=== PATIENT | male | born 1985 | race Caucasian/White ===

== ENCOUNTER 2017-04-08 09:29 | Emergency (ER) | payer OTHER ==
[2017-04-08 09:41] VITALS: BP 149/97
--- NOTE | 2017-04-08 11:39 | RAD ---
INDICATION: Severe RIGHT lower leg/calf pain and swelling following injury one week ago. COMPARISON: No relevant prior exams available on the [facility] for comparison. TECHNIQUE: Wells scale, color Doppler, and spectral analysis of the deep veins of the RIGHT lower extremity. Vessel compression, phasicity, and augmentation assessed. REPORT: The RIGHT common femoral, great saphenous, profunda femoral, femoral, popliteal, peroneal, and posterior tibial veins are patent. There is a gross complete distal myotendinous junction tear of the medial head of the gastrocnemius with up to 2.5 cm gap due to muscle retraction. Associated infiltrative edema/hematoma within the muscular compartment as well as overlying subcutaneous edema. The distal myotendinous junction of the lateral head of the gastrocnemius is intact. Patency of the LEFT common femoral vein documented. IMPRESSION: 1. No evidence for RIGHT lower extremity deep venous thrombosis. 2. Gross complete distal myotendinous junction tear of the medial head of the gastrocnemius with up to 2.5 cm gap due to muscle retraction and associated infiltrative edema/hematoma within the muscular compartment as well as overlying subcutaneous edema.
--- NOTE | 2017-04-08 14:46 | UC ---
Lower Extremity/Ankle HPI - HPI Summary HPI Summary: pt was playing basket ball 1 week ago and felt a pop when he jumped. he experienced immediate pain followed by swelling then bruising. pain with walking and weight bearing. pain tends to improve with movement but worsens as the day progresses. leg is not improving and pt worried about dvt. no other sx. - History of Current Complaint Chief Complaint: UCLowerExtremity Stated Complaint: CALF PAIN Time Seen by Provider: 04/08/17 09:59 Hx Obtained From: Patient Onset/Duration: Sudden Onset, Lasting Weeks, Still Present Severity Initially: Moderate Severity Currently: Moderate Pain Intensity: 7 Pain Scale Used: 0-10 Numeric Aggravating Factor(s): Standing, Ambulation Alleviating Factor(s): Rest Able to Bear Weight: Yes - Allergies/Home Medications Allergies/Adverse Reactions: Allergies Allergy/AdvReac Type Severity Reaction Status Date / Time No Known Allergies Allergy Verified 04/08/17 09:36 Home Medications: Home Medications NK [No Home Medications Reported] 04/08/17 [History Confirmed 04/08/17] PMH/Surg Hx/FS Hx/Imm Hx Previously Healthy: Yes Other Cardiovascular History: neg htn Other Respiratory History: neg asthma - Surgical History Surgical History: Yes Surgery Procedure, Year, and Place: left knee-' - Family History Known Family History: Negative: Cardiac Disease, Hypertension, Diabetes - Social History Alcohol Use: Occasionally Substance Use Type: None Smoking Status (MU): Never Smoked Tobacco - Immunization History Most Recent Influenza Vaccination: none Review of Systems Constitutional: Negative Skin: Bruising ENT: Negative Respiratory: Negative Cardiovascular: Negative Gastrointestinal: Negative Musculoskeletal: Edema, Myalgia Neurological: Negative All Other Systems Reviewed And Are Negative: Yes Physical Exam Triage Information Reviewed: Yes Appearance: Well-Appearing, No Pain Distress, Well-Nourished Vital Signs: Initial Vital Signs Temp 97.9 F 04/08/17 09:36 Pulse 81 04/08/17 09:36 Resp 18 04/08/17 09:36 BP 149/97 04/08/17 09:36 Pulse Ox 98 04/08/17 09:36 Vital Signs Reviewed: Yes Eyes: Positive: Conjunctiva Clear. Negative: Discharge ENT: Positive: Hearing grossly normal. Negative: Muffled/hoarse voice Neck: Positive: Supple Respiratory: Positive: Lungs clear, Normal breath sounds, No respiratory distress, No accessory muscle use Cardiovascular: Positive: RRR, No Murmur Musculoskeletal: Positive: ROM Limited @ - flexion, Edema @, Other: - calf tenderness. no appreciable defect Neurological: Positive: Alert, Muscle Tone Normal Psychological: Positive: Age Appropriate Behavior Skin Exam: Normal Skin: Positive: Other - dependant bruising around rt ankle Lower Extremity Course/Dx - Differential Dx/Diagnosis Differential Diagnosis/HQI/PQRI: DVT, Phlebitis, Sprain, Strain, Other - tendon rupture Provider Diagnoses: tendon rupture, elevated bp withou dx of htn Discharge - Discharge Plan Condition: Stable Disposition: HOME Patient Education Materials: Tendon Rupture (ED) Forms: *Work Release Referrals: Guillermo Díaz MD [Medical Doctor] - (follow up in 4-7 days) No Primary Care Phys,NOPCP [Primary Care Provider] - Additional Instructions: FOLLOW-UP CARE: You should establish with a private physician for follow-up care. If you are unable to get a timely appointment, or if you are worsening, call us or return for re-evaluation. An additional resource available to assist in finding the appropriate physician for your health care needs is the Physician Referral Center. You may contact them by calling [phone].
== END 2017-04-08 12:23 | disposition home or self-care (01) ==
LOC: UCEAST 09:29
DX: S86.811A Strain of other muscle(s) and tendon(s) at lower leg level, right leg, initial encounter (principal); R03.0 Elevated blood-pressure reading, without diagnosis of hypertension; X50.9XXA Other and unspecified overexertion or strenuous movements or postures, initial encounter; Y92.9 Unspecified place or not applicable; R60.0 Localized edema
CPT/HCPCS: 99212; G0463

== ENCOUNTER 2018-09-25 18:40 | Emergency (ER) | payer OTHER ==
[2018-09-25 19:56] LABS: ABS Basophils 0.1 10^3/ul (0-0.2); ABS Eosinophils 0.1 10^3/ul (0-0.6); ABS Lymphocytes 2.1 10^3/ul (1.0-4.8); ABS Monocytes 0.5 10^3/ul (0-0.8); ABS Neutrophils 3.6 10^3/ul (1.5-7.7); ABS Nucleated RBC 0 10^3/ul; Eosinophil % 1.7 %; Hematocrit 42 % (42-52); Hemoglobin 14.8 g/dl (14.0-18.0); Mean Corpuscular HGB Conc 35 g/dl (31-36); Mean Corpuscular Hemoglobin 30 pg (27-31); Mean Corpuscular Volume 87 fL (80-94); Mean Platelet Volume 8.9 fL (7.4-10.4); Nucleated Red Blood Cells % 0.1; Platelet Count 216 10^3/ul (150-450); Red Blood Count 4.87 10^6/ul (4.00-5.40); Red Cell Distribution Width 13 % (10.5-15); White Blood Count 6.5 10^3/ul (3.5-10.8)
[2018-09-25 20:13] LABS: BUN/Creatinine Ratio 11.6 (8-20); C Reactive Protein 5.01 mg/L (<8.01); Calcium 9.8 mg/dL (8.6-10.3); EGFR African American 92.5 (>60); EGFR Non-African American 76.5 (>60); Globulin 2.5 g/dL (2-4); Potassium 4.2 mmol/L (3.5-5.0); Total Bilirubin 0.5 mg/dL (0.2-1.0); Total Protein 7.5 g/dL (6.4-8.9)
[2018-09-25 22:19] LABS: Urine Appearance Clear; Urine Bilirubin Negative (Negative); Urine Blood Negative (Negative); Urine Color Yellow; Urine Glucose Negative (Negative); Urine Ketones Negative (Negative); Urine Nitrite Negative (Negative); Urine Protein Negative (Negative); Urine Specific Gravity 1.027 (1.010-1.030); Urine Urobilinogen Negative (Negative)
[2018-09-25] MEDS ORDERED: Magnesium CITRATE* 300 ML BTL PO ONE (22:45)
[2018-09-25] MEDS ORDERED: Bisacodyl SUPP* 10 MG SUPP PR ONE (22:46)
[2018-09-25 23:08] VITALS: BP 141/99
--- NOTE | 2018-09-25 23:09 | ED ---
Abdominal Pain/Male - HPI Summary HPI Summary: The patient is a 32 year old male who is presenting to the [facility] with a chief complaint of abd pain. The patient states that the onset of the pain was 3 days ago. He denies nausea and vomiting. The pain is also reported to be constant. He has not had a decreased appetite and was able to eat today. No urinary symptoms were reported and the patient has been able to urinate normally. The pain is rated to be 4/10 in severity. The symptoms are aggravated by nothing and the symptoms are alleviated by nothing. - History of Current Complaint Chief Complaint: EDAbdPain Stated Complaint: RIGHT ABD PAIN Time Seen by Provider: 09/25/18 21:56 Hx Obtained From: Patient Onset/Duration: Gradual Onset, Lasting Days - Since 3 days ago Timing: Constant Severity Initially: Moderate Severity Currently: Moderate Pain Intensity: 4 Pain Scale Used: 0-10 Numeric Aggravating Factor(s): Nothing Alleviating Factor(s): Nothing Associated Signs And Symptoms: Negative: Nausea, Vomiting - Allergies/Home Medications Allergies/Adverse Reactions: Allergies Allergy/AdvReac Type Severity Reaction Status Date / Time No Known Allergies Allergy Verified 09/25/18 19:11 PMH/Surg Hx/FS Hx/Imm Hx Sensory History: Denies: Hx Vision Problem, Hx Deafness Opthamlomology History: Denies: Hx Legally Blind EENT History: Denies: Hx Deafness, Hx Hearing Aid - Surgical History Surgery Procedure, Year, and Place: left knee-'09 - Immunization History Date of Tetanus Vaccine: utd Date of Influenza Vaccine: none Infectious Disease History: No Infectious Disease History: Denies: Traveled Outside the [place] in Last 30 Days - Family History Known Family History: Negative: Cardiac Disease, Hypertension, Diabetes - Social History Occupation: Employed Full-time Alcohol Use: Weekly Substance Use Type: Reports: None Smoking Status (MU): Never Smoked Tobacco Review of Systems Constitutional: Negative Eyes: Negative ENT: Negative Cardiovascular: Negative Respiratory: Negative Positive: Abdominal Pain, Other - Negative decreased appetite. Negative: Vomiting, Nausea Genitourinary: Other - Negative Urinary Symptoms Musculoskeletal: Negative Skin: Negative Neurological: Negative Psychological: Normal All Other Systems Reviewed And Are Negative: Yes Physical Exam - Summary Physical Exam Summary: VITAL SIGNS: Reviewed. GENERAL: Patient is a well-developed and nourished (MALE) who is lying comfortable in the stretcher. Patient is not in any acute respiratory distress. HEAD AND FACE: No signs of trauma. No ecchymosis, hematomas or skull depressions. No sinus tenderness. EYES: PERRLA, EOMI x 2, No injected conjunctiva, no nystagmus. EARS: Hearing grossly intact. Ear canals and tympanic membranes are within normal limits. MOUTH: Oropharynx within normal limits. NECK: Supple, trachea is midline, no adenopathy, no JVD, no carotid bruit, no c- spine tenderness, neck with full ROM. CHEST: Symmetric, no tenderness at palpation LUNGS: Clear to auscultation bilaterally. No wheezing or crackles. CVS: Regular rate and rhythm, S1 and S2 present, no murmurs or gallops appreciated. ABDOMEN: Soft, non-tender. No signs of distention. No rebound no guarding, and no masses palpated. Bowel sounds are normal. EXTREMITIES: FROM in all major joints, no edema, no cyanosis or clubbing. NEURO: Alert and oriented x 3. No acute neurological deficits. Speech is normal and follows commands. SKIN: Dry and warm Triage Information Reviewed: Yes Vital Signs On Initial Exam: Initial Vitals Temp Pulse Resp BP Pulse Ox 98.6 F 90 16 158/108 97 09/25/18 19:09 09/25/18 19:09 09/25/18 19:09 09/25/18 19:09 09/25/18 19:09 Vital Signs Reviewed: Yes Diagnostics - Vital Signs Vital Signs Temp Pulse Resp BP Pulse Ox 09/25/18 21:25 86 149/96 99 09/25/18 21:04 98.3 F 82 16 141/76 99 09/25/18 19:09 98.6 F 90 16 158/108 97 - Laboratory Lab Results: Lab Results 09/25/18 09/25/18 09/25/18 Range/Units 19:51 19:51 19:51 WBC 6.5 (3.5-10.8) 10^3/ul RBC 4.87 (4.00-5.40) 10^6/ul Hgb 14.8 (14.0-18.0) g/dl Hct 42 (42-52) % MCV 87 (80-94) fL MCH 30 (27-31) pg MCHC 35 (31-36) g/dl RDW 13 (10.5-15) % Plt Count 216 (150-450) 10^3/ul MPV 8.9 (7.4-10.4) fL Neut % (Auto) 56.3 % Lymph % (Auto) 33.0 % Weld % (Auto) 8.1 % Eos % (Auto) 1.7 % Baso % (Auto) 0.9 % Absolute Neuts (auto) 3.6 (1.5-7.7) 10^3/ul Absolute Lymphs (auto) 2.1 (1.0-4.8) 10^3/ul Absolute Monos (auto) 0.5 (0-0.8) 10^3/ul Absolute Eos (auto) 0.1 (0-0.6) 10^3/ul Absolute Basos (auto) 0.1 (0-0.2) 10^3/ul Absolute Nucleated RBC 0 10^3/ul Nucleated RBC % 0.1 Sodium 138 (135-145) mmol/L Potassium 4.2 (3.5-5.0) mmol/L Chloride 105 (101-111) mmol/L Carbon Dioxide 29 (22-32) mmol/L Anion Gap 4 (2-11) mmol/L BUN 13 (6-24) mg/dL Creatinine 1.12 (0.67-1.17) mg/dL Est GFR ( Amer) 92.5 (>60) Est GFR (Non-Af Amer) 76.5 (>60) BUN/Creatinine Ratio 11.6 (8-20) Glucose 87 (70-100) mg/dL Lactic Acid 0.6 (0.5-2.0) mmol/L Calcium 9.8 (8.6-10.3) mg/dL Total Bilirubin 0.50 (0.2-1.0) mg/dL AST 31 (13-39) U/L ALT 86 H (7-52) U/L Alkaline Phosphatase 54 (34-104) U/L C-Reactive Protein 5.01 (<8.01) mg/L Total Protein 7.5 (6.4-8.9) g/dL Albumin 5.0 (3.2-5.2) g/dL Globulin 2.5 (2-4) g/dL Albumin/Globulin Ratio 2.0 (1-3) Lipase 72 (11.0-82.0) U/L Urine Color Urine Appearance Urine pH (5-9) Ur Specific [place] (1.010-1.030) Urine Protein (Negative) Urine Ketones (Negative) Urine Blood (Negative) Urine Nitrate (Negative) Urine Bilirubin (Negative) Urine Urobilinogen (Negative) Ur Leukocyte Esterase (Negative) Urine Glucose (Negative) Urine Ascorbic Acid (Negative) 09/25/18 Range/Units 22:10 WBC (3.5-10.8) 10^3/ul RBC (4.00-5.40) 10^6/ul Hgb (14.0-18.0) g/dl Hct (42-52) % MCV (80-94) fL MCH (27-31) pg MCHC (31-36) g/dl RDW (10.5-15) % Plt Count (150-450) 10^3/ul MPV (7.4-10.4) fL Neut % (Auto) % Lymph % (Auto) % Weld % (Auto) % Eos % (Auto) % Baso % (Auto) % Absolute Neuts (auto) (1.5-7.7) 10^3/ul Absolute Lymphs (auto) (1.0-4.8) 10^3/ul Absolute Monos (auto) (0-0.8) 10^3/ul Absolute Eos (auto) (0-0.6) 10^3/ul Absolute Basos (auto) (0-0.2) 10^3/ul Absolute Nucleated RBC 10^3/ul Nucleated RBC % Sodium (135-145) mmol/L Potassium (3.5-5.0) mmol/L Chloride (101-111) mmol/L Carbon Dioxide (22-32) mmol/L Anion Gap (2-11) mmol/L BUN (6-24) mg/dL Creatinine (0.67-1.17) mg/dL Est GFR ( Amer) (>60) Est GFR (Non-Af Amer) (>60) BUN/Creatinine Ratio (8-20) Glucose (70-100) mg/dL Lactic Acid (0.5-2.0) mmol/L Calcium (8.6-10.3) mg/dL Total Bilirubin (0.2-1.0) mg/dL AST (13-39) U/L ALT (7-52) U/L Alkaline Phosphatase (34-104) U/L C-Reactive Protein (<8.01) mg/L Total Protein (6.4-8.9) g/dL Albumin (3.2-5.2) g/dL Globulin (2-4) g/dL Albumin/Globulin Ratio (1-3) Lipase (11.0-82.0) U/L Urine Color Yellow Urine Appearance Clear Urine pH 6.0 (5-9) Ur Specific [place] 1.027 (1.010-1.030) Urine Protein Negative (Negative) Urine Ketones Negative (Negative) Urine Blood Negative (Negative) Urine Nitrate Negative (Negative) Urine Bilirubin Negative (Negative) Urine Urobilinogen Negative (Negative) Ur Leukocyte Esterase Negative (Negative) Urine Glucose Negative (Negative) Urine Ascorbic Acid * A (Negative) Result Diagrams: 09/25/18 19:51 09/25/18 19:51 Lab Statement: Any lab studies that have been ordered have been reviewed, and results considered in the medical decision making process. - Radiology Abd X-ray Radiology Interpretation Completed By: ED Physician Summary of Radiographic Findings: The abd x-ray reveals, as per ED Physician, increased stool in the left colon. Abdominal Pain Fem Course/Dx - Course Course Of Treatment: The patient is a 32 year old male who is presenting to the [facility] with a chief complaint of abd pain. The urine sample and blood work showed unremarkable or normal results. An abd X-ray was taken in the [facility] and revealed increased stool. The patient has a normal WBC and normal CRP. The pain is most likely secondary to constipation. The dx will be abd pain and constipation. The patient will be discharged home. - Diagnoses Provider Diagnoses: Abdominal pain, Constipation Discharge - Sign-Out/Discharge Documenting (check all that apply): Patient Departure - Discharge Home Patient Received Moderate/Deep Sedation with Procedure: No - Discharge Plan Condition: Stable Disposition: HOME Patient Education Materials: Constipation (ED), Abdominal Pain (ED) Referrals: Jena Fairchild MD [Primary Care Provider] - Additional Instructions: RETURN TO THE EMERGENCY DEPARTMENT FOR CHANGING OR WORSENING SYMPTOMS. FOLLOW UP WITH PCP IN 1-2 DAYS. - Billing Disposition and Condition Condition: STABLE Disposition: Home - Attestation Statements Document Initiated by Scribe: Yes Documenting Scribe: Charles Taye Provider For Whom Scribe is Documenting (Include Credential): Dr. Johanna Brown Scribe Attestation: I, Charles Kothari, scribed for Dr. Johanna Brown on 09/26/18 at 0552. Scribe Documentation Reviewed: Yes Provider Attestation: The documentation as recorded by the Charles flores accurately reflects the service I personally performed and the decisions made by me, Dr. Johanna Brown Status of Scribe Document: Viewed
== END 2018-09-25 23:08 | disposition home or self-care (01) ==
LOC: ED 18:40
DX: R10.9 Unspecified abdominal pain (principal); K59.00 Constipation, unspecified
CPT/HCPCS: 36415; 74019; 80053; 81003; 83605; 83690; 85025; 86140; 99282; A9270-GY